=== PATIENT | female | born 1965 | race American Indian/Alaskan Native ===

== ENCOUNTER 2018-10-28 19:31 | Inpatient (IN) | payer MEDICAID ==
--- NOTE | 2018-10-28 20:10 | C.PDOC ---
History Of Present Illness 52 year old female presents to the ED requesting heroin and alcohol detox. Patient admits to last use of heroin this morning. She denies nausea, vomiting, diarrhea, dizziness, shortness of breath, suicidal/homicidal ideation. Time Seen by Provider: 10/28/18 20:10 Chief Complaint (Nursing): Psychiatric Evaluation History Per: Patient History/Exam Limitations: no limitations Onset/Duration Of Symptoms: Hrs Current Symptoms Are (Timing): Still Present Modifying Factor(s): Alcohol, Other (heroin ) Associated Symptoms: denies: Suicidal Thoughts, Suicidal Plan Involuntary Hold By: None Recent travel outside of the [place]: No Additional History Per: Patient Past Medical History Reviewed: Historical Data, Nursing Documentation, Vital Signs Vital Signs: Last Vital Signs Temp 97.9 F 10/28/18 19:42 Pulse 92 H 10/28/18 19:42 Resp 18 10/28/18 19:42 BP 149/91 H 10/28/18 19:42 Pulse Ox 99 10/28/18 19:42 - Medical History PMH: Arthritis, Depression, HTN, Pulmonary Embolism Surgical History: No Surg Hx Family History: States: Unknown Family Hx - Social History Hx Alcohol Use: Yes Hx Substance Use: Yes - Immunization History Hx Tetanus Toxoid Vaccination: No Hx Influenza Vaccination: Yes Hx Pneumococcal Vaccination: No Review Of Systems Constitutional: Negative for: Fever, Chills Gastrointestinal: Negative for: Nausea, Vomiting, Diarrhea Psych: Positive for: Other (heroin and alcohol detox ). Negative for: Suicidal ideation Physical Exam - Physical Exam Appears: Non-toxic, No Acute Distress Skin: Normal Color, Warm, Dry Head: Atraumatic, Normacephalic Eye(s): bilateral: Normal Inspection, PERRL, EOMI Oral Mucosa: Moist Neck: Normal, Normal ROM, Supple, Other (no meningeal signs) Chest: Symmetrical, No Deformity Cardiovascular: Rhythm Regular Respiratory: Normal Breath Sounds Back: Normal Inspection, No CVA Tenderness Extremity: Normal ROM, No Tenderness Extremity: Bilateral: Atraumatic Neurological/Psych: Oriented x3, Normal Speech, Normal Cognition, Normal Cranial Nerves, No Cerebellar Signs, Normal Motor, Normal Sensation Gait: Steady Extremity: Right: No Drift, Left: No Drift, Upper: No Drift, Lower: No Drift ED Course And Treatment - Laboratory Results Result Diagrams: 10/28/18 20:53 10/28/18 20:53 O2 Sat by Pulse Oximetry: 99 (on RA) Pulse Ox Interpretation: Normal Medical Decision Making Medical Decision Makin yr old F presents for detox from Heroin. Pt in NAD, neuro exam unremarkable. Denies any complaints other than desire fro detox. Progress: Bloodwork and urinalysis ordered and reviewed. 1001 labs reviewed medically clear accepted by detox : Dr. Sandra Disposition - Disposition Referrals: Non [facility] Provider, [Primary Care Provider] - Disposition Time: 22:13 Condition: GOOD Forms: [employer] (Israeli) - Clinical Impression Clinical Impression: Desire for detoxification, Heroin abuse - Scribe Statement The provider has reviewed the documentation as recorded by the Scribe (Leslie Brown) Provider Attestation: All medical record entries made by the Scribe were at my direction and personally dictated by me. I have reviewed the chart and agree that the record accurately reflects my personal performance of the history, physical exam, medical decision making, and the department course for this patient. I have also personally directed, reviewed, and agree with the discharge instructions and disposition.
[2018-10-28 20:41] LABS: SQUAMOUS EPITHIAL 4 /hpf (0-5); URINE BACTERIA MANY (<OCC); URINE BILIRUBIN NEGATIVE (NEGATIVE); URINE BLOOD NEGATIVE (NEGATIVE); URINE CLARITY Clear (Clear); URINE COLOR Yellow (YELLOW); URINE GLUCOSE (UA) NORMAL (Normal); URINE LEUKOCYTE ESTERASE NEG Leu/uL (Negative); URINE PROTEIN NEGATIVE (NEGATIVE); URINE UROBILINOGEN NORMAL mg/dL (0.2-1.0)
[2018-10-28 20:52] LABS: BARBITURATES, UR NEGATIVE (NEGATIVE); PHENCYCLIDINE, UR NEGATIVE (NEGATIVE)
[2018-10-28 20:53] LABS: BENZODIAZEPINES, UR POSITIVE (NEGATIVE); OPIATES, UR POSITIVE (NEGATIVE)
[2018-10-28 20:57] LABS: BASO # 0.1 K/uL (0.0-0.2); BASO % 0.8 % (0.0-2.0); EOS # 0.1 K/uL (0.0-0.7); EOS % 1.6 % (0.0-4.0); HEMOGLOBIN 12.5 g/dL (11.0-16.0); LYMPH # 2.1 K/uL (1.0-4.3); MEAN CELL VOLUME 94.2 fL (81.0-99.0); MEAN CORPUSCULAR HEMOGLOBIN 31.9 pg (27.0-31.0); MEAN CORPUSCULAR HGB CONC 33.8 g/dL (33.0-37.0); MEAN PLATELET VOLUME 8.6 fL (7.2-11.7); MONO # 0.6 K/uL (0.0-0.8); MONO % 7.2 % (0.0-10.0); NEUT # 5.1 K/uL (1.8-7.0); NEUT % 64.4 % (50.0-75.0); NRBC % 0.2 % (0.0-2.0); RBC 3.92 Mil/uL (3.80-5.20); RED CELL DISTRIBUTION WIDTH 14.4 % (11.5-14.5)
[2018-10-28 21:12] LABS: ALB/GLOB RATIO 1.2 (1.0-2.1); ALBUMIN 4.4 g/dL (3.5-5.0); ALT/SGPT 37 U/L (9-52); AST/SGOT 96 U/L (14-36); BLOOD UREA NITROGEN 11 mg/dL (7-17); CALCIUM 9.3 mg/dl (8.6-10.4); GFR NON-AFRICAN AMERICAN > 60
[2018-10-28 21:13] LABS: ACETAMINOPHEN < 10.0 ug/mL (10.0-30.0); SALICYLATE < 1.0 mg/dL 1
--- NOTE | 2018-10-29 00:04 | PCM.BM ---
<Rich Lebron - Last Filed: 10/29/18 00:03> Treatment Plan Problems - Problems identified on initial assessmt potential for opiates withdrawal Date Initiated: 10/29/18 Time Initiated: 00:03 Assessment reference: NA Status: Active Treatment assets and liabiliti Patient Assests: adapts well, cooperative, educated, self-reliant, ADL independent, good support system, cognitively intact Patient Liabilities: substance abuse - Milieu Protocol Maintain good personal hygiene: daily Encourage regular showers, daily Remind patient to perform daily oral care, daily Assist patient to perform ADL's Maintain personal safety: every shift Educate patient to report safety concerns to staff, every shift Monitor environment for contraband/sharps Medication safety: Monitor for expected outcome, potential side effects: every shift, Assess barriers to learning: every shift, Assess readiness for medication education: every shift <Sofya Alexander - Last Filed: 11/01/18 14:34> Family Contact Family involvement: Famliy/SO not involved - Goals for Treatment Patient goals for treatment: Complete detox and apply for short-term rehab. Discharge/Continuing Care - Education Needs Education Needs: Patient Medication, Patient Diagnosis/Disease Process, Patient Coping Skills, Patient Anger Management skills, Patient Placement options, Patient Community resources - Discharge Discharge Criteria: No longer exhibiting s/s of withdrawal, Reduction of target symptoms Discharge to:: Substance Abuse Rehab - Treatment Team Participation Discussed with Family/SO: No Was Patient/Family/SO present at Treatment Team Meeting: Yes
[2018-10-29] MEDS: Multiple Vitamins Tab PO SCH (11:03)
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
[2018-10-29] MEDS ORDERED: Enoxaparin 150 mg Syringe SC SCH (13:30)
[2018-10-29] MEDS: NIFEdipine 30 mg ER Tab PO SCH (13:52)
[2018-10-29] MEDS: Enoxaparin 150 mg Syringe SC SCH (18:10)
[2018-10-30] MEDS: Multiple Vitamins Tab PO SCH (10:52)
[2018-10-30] MEDS: NIFEdipine 30 mg ER Tab PO SCH (10:53)
--- NOTE | 2018-10-30 14:44 | CP.PCM.CON ---
<Jane Sinha - Last Filed: 10/30/18 22:00> History of Present Illness - History of Present Illness History of Present Illness: 53 year old female with history of HTN, DVT/PE on Lovenox, alcohol and heroin (sniff) abuse was admitted to detox unit for detox. Medicine team was consulted for patient intractable vomiting. Patient started experiencing vomiting this morning. Patient reports the vomitus have been yellow to dark yellow in color. Patient also complains of epigastric pain that started soon after first episode of vomiting. Her last alcohol and heroin use was on 10/28/18. She cannot quantify how much she had. Patient vomits whenever she takes any by mouth including water. Patient denies fever, chills, shortness of breath, chest pain, or urinary symptoms. PMD: none PMHx: HTN, DVT/PE on Lovenox, gastritis, alcohol and heroin (sniff) abuse PSHx: 1998, endoscopy 2017 Allergy: none Family history: mother-DM, HTN, colon cancer Home med: lovenox Review of Systems - Constitutional Constitutional: As Per HPI, Fatigue. absent: Chills, Fever - EENT Eyes: As Per HPI. absent: Blind Spots, Blurred Vision, Decreased Night Vision, Diplopia Ears: As Per HPI. absent: Decreased Hearing, Disequilibrium, Dizziness Nose/Mouth/Throat: As Per HPI. absent: Epistaxis, Nasal Trauma, Nose Pain, Change in Voice - Cardiovascular Cardiovascular: As Per HPI. absent: Acrocyanosis, Chest Pain, Chest Pain at Rest, Edema, Irregular Heart Rhythm - Respiratory Respiratory: As Per HPI. absent: Dyspnea on Exertion, Wheezing - Gastrointestinal Gastrointestinal: As Per HPI, Abdominal Pain, Diarrhea, Nausea, Vomiting. absent: Melena - Genitourinary Genitourinary: As Per HPI. absent: Hematuria, Pyuria - Musculoskeletal Musculoskeletal: As Per HPI. absent: Joint Swelling, Muscle Weakness - Integumentary Integumentary: As Per HPI. absent: Acne, Erythema - Neurological Neurological: As Per HPI. absent: Abnormal Gait, Abnormal Speech, Convulsions - Psychiatric Psychiatric: As Per HPI. absent: Auditory Hallucinations, Change in Libido, Confusion - Endocrine Endocrine: As Per HPI - Hematologic/Lymphatic Hematologic: As Per HPI Past Patient History - Infectious Disease Hx of Infectious Diseases: None - Past Medical History & Family History Past Medical History?: Yes - Past Social History Smoking Status: Never Smoked - CARDIAC Hx Hypertension: Yes - PULMONARY Hx Pulmonary Embolism: Yes - NEUROLOGICAL HX Cerebrovascular Accident: No (Patient denied) Hx Seizures: No (Patient reported she does not know) - HEMATOLOGICAL/ONCOLOGICAL Hx Cancer: No (Patient denied) Hx Human Immunodeficiency Virus (HIV): No (Patient denied) - MUSCULOSKELETAL/RHEUMATOLOGICAL Hx Arthritis: Yes Hx Falls: Yes - GENITOURINARY/GYNECOLOGICAL Hx Sexually Transmitted Disorders: No (Patient denied) - PSYCHIATRIC Hx Substance Use: Yes - SURGICAL HISTORY Hx Section: Yes Other/Comment: "biopsy" - ANESTHESIA Hx Anesthesia: Yes Hx Anesthesia Reactions: No Hx Malignant Hyperthermia: No Meds Allergies/Adverse Reactions: Allergies Allergy/AdvReac Type Severity Reaction Status Date / Time No Known Allergies Allergy Unverified 10/28/18 19:42 - Medications Medications: Current Medications Chlordiazepoxide (Librium) 25 mg PO TID [facility]; Taper Stop: 11/02/18 11:59 Last Admin: 10/30/18 14:01 Dose: Not Given Chlordiazepoxide (Librium) 25 mg PO Q4H PRN PRN Reason: Alcohol Withdrawal Last Admin: 10/30/18 01:25 Dose: 25 mg Clonidine HCl (Catapres) 0.1 mg PO Q6 PRN PRN Reason: cows=5 or more than Last Admin: 10/30/18 12:50 Dose: 0.1 mg Dicyclomine HCl (Bentyl) 10 mg PO Q6 PRN PRN Reason: Muscle spasm Duloxetine HCl (Cymbalta) 30 mg PO DAILY [facility] Last Admin: 10/30/18 10:52 Dose: Not Given Enoxaparin Sodium (Lovenox) 150 mg SC Q24H [facility] Last Admin: 10/29/18 18:10 Dose: 150 mg Folic Acid (Folic Acid) 1 mg PO DAILY [facility] Last Admin: 10/30/18 10:52 Dose: Not Given Gabapentin (Neurontin) 600 mg PO TID [facility] Last Admin: 10/30/18 14:01 Dose: Not Given Hydroxyzine HCl (Atarax) 50 mg PO Q6 PRN PRN Reason: Anxiety Last Admin: 10/28/18 23:37 Dose: 50 mg Ibuprofen (Motrin Tab) 600 mg PO Q6 PRN PRN Reason: Pain, moderate (4-7) Last Admin: 10/30/18 01:25 Dose: 600 mg Lisinopril (Zestril) 40 mg PO DAILY [facility] Last Admin: 10/30/18 10:54 Dose: Not Given Methadone HCl (Methadone) 15 mg PO Q24H [facility]; Taper Stop: 11/02/18 09:59 Last Admin: 10/30/18 10:53 Dose: Not Given Metoclopramide HCl (Reglan) 5 mg PO 0600,1130,1630,2200 [facility] Metoprolol Tartrate (Lopressor) 25 mg PO BID [facility] Last Admin: 10/30/18 10:53 Dose: Not Given Multivitamins (Hexavitamin) 1 tab PO DAILY [facility] Last Admin: 10/30/18 10:52 Dose: Not Given Nifedipine (Procardia Xl) 30 mg PO DAILY [facility] Last Admin: 10/30/18 10:53 Dose: Not Given Ondansetron HCl (Zofran Tab) 4 mg PO Q6 PRN PRN Reason: Nausea/Vomiting Last Admin: 10/30/18 08:03 Dose: 4 mg Thiamine HCl (Vitamin B1 Tab) 100 mg PO DAILY [facility] Last Admin: 10/30/18 10:53 Dose: Not Given Trazodone HCl (Desyrel) 100 mg PO HS PRN PRN Reason: Insomnia Last Admin: 10/30/18 01:25 Dose: 100 mg Physical Exam - Constitutional Appears: Non-toxic, Unkempt - Head Exam Head Exam: ATRAUMATIC, NORMAL INSPECTION, NORMOCEPHALIC - Eye Exam Eye Exam: EOMI, Normal appearance, PERRL Pupil Exam: NORMAL ACCOMODATION, PERRL - ENT Exam ENT Exam: Mucous Membranes Moist, Normal Exam - Respiratory Exam Respiratory Exam: Clear to Auscultation Bilateral, NORMAL BREATHING PATTERN. absent: Respiratory Distress - Cardiovascular Exam Cardiovascular Exam: REGULAR RHYTHM, +S1, +S2 - GI/Abdominal Exam GI & Abdominal Exam: Normal Bowel Sounds, Soft, Tenderness (epigastric tenderness) Additional comments: Negative Villalobos's, Negative McBurney's - Extremities Exam Extremities exam: Positive for: normal inspection - Back Exam Back exam: NORMAL INSPECTION - Neurological Exam Neurological exam: Alert, Oriented x3 - Psychiatric Exam Psychiatric exam: Normal Affect, Normal Mood - Skin Skin Exam: Dry, Normal Color, Warm Results - Vital Signs Recent Vital Signs: Last Vital Signs Temp 98.7 F 10/30/18 14:26 Pulse 73 10/30/18 14:26 Resp 18 10/30/18 14:26 BP 152/89 H 10/30/18 14:26 Pulse Ox 99 10/30/18 14:26 - Labs Result Diagrams: 10/30/18 17:11 10/30/18 17:11 Assessment & Plan - Assessment and Plan (Free Text) Assessment: Intractable vomiting -Likely secondary polysubstance withdraw -Reglan 5mg po -Zofran 4mg po -Encourage oral hydration -Mucous membrane moist, no signs of dehydration -Follow up labs, replenish as needed Epigastric pain -Hx of gastritis and recent endoscopy -Protonix 40mg -Follow up labs, EKG, Troponin Hx of DVT/PE -Unprovoked DVT 2014 -Unable to control INR with coumadin in the past -Lovenox 150u daily HTN -Exacerbated with vomiting -Lisinopril 40mg -Metoprolol 25mg BID -Procardia 30mg -Clonidine 0.1mg Q6 Polysubstance abuse -Management per psych Discussed with attending Dr. Drummond <Vineet Drummond - Last Filed: 10/31/18 10:31> Meds - Medications Medications: Current Medications Chlordiazepoxide (Librium) 25 mg PO TID [facility]; Taper Stop: 11/02/18 11:59 Last Admin: 10/30/18 17:24 Dose: 25 mg Chlordiazepoxide (Librium) 25 mg PO Q4H PRN PRN Reason: Alcohol Withdrawal Last Admin: 10/31/18 03:42 Dose: 25 mg Clonidine HCl (Catapres) 0.1 mg PO Q6 PRN PRN Reason: cows=5 or more than Last Admin: 10/31/18 03:41 Dose: 0.1 mg Dicyclomine HCl (Bentyl) 10 mg PO Q6 PRN PRN Reason: Muscle spasm Last Admin: 10/30/18 15:56 Dose: 10 mg Duloxetine HCl (Cymbalta) 30 mg PO DAILY [facility] Last Admin: 10/30/18 10:52 Dose: Not Given Enoxaparin Sodium (Lovenox) 150 mg SC Q24H [facility] Last Admin: 10/30/18 16:59 Dose: 150 mg Folic Acid (Folic Acid) 1 mg PO DAILY [facility] Last Admin: 10/30/18 10:52 Dose: Not Given Gabapentin (Neurontin) 600 mg PO TID [facility] Last Admin: 10/30/18 17:25 Dose: 600 mg Hydroxyzine HCl (Atarax) 50 mg PO Q6 PRN PRN Reason: Anxiety Last Admin: 10/31/18 03:41 Dose: 50 mg Ibuprofen (Motrin Tab) 600 mg PO Q6 PRN PRN Reason: Pain, moderate (4-7) Last Admin: 10/31/18 03:42 Dose: 600 mg Lisinopril (Zestril) 40 mg PO DAILY [facility] Last Admin: 10/30/18 10:54 Dose: Not Given Magnesium Hydroxide (Milk Of Magnesia) 30 ml PO BID PRN PRN Reason: Constipation Last Admin: 10/30/18 18:16 Dose: 30 ml Magnesium Oxide (Mag-Ox) 400 mg PO BID [facility] Stop: 10/31/18 18:01 Methadone HCl (Methadone) 10 mg PO Q24H [facility]; Taper Stop: 11/02/18 09:59 Last Admin: 10/30/18 10:53 Dose: Not Given Metoclopramide HCl (Reglan) 5 mg PO 0600,1130,1630,2200 [facility] Last Admin: 10/31/18 06:47 Dose: Not Given Metoprolol Tartrate (Lopressor) 25 mg PO BID [facility] Last Admin: 10/30/18 18:16 Dose: 25 mg Multivitamins (Hexavitamin) 1 tab PO DAILY [facility] Last Admin: 10/30/18 10:52 Dose: Not Given Nifedipine (Procardia Xl) 30 mg PO DAILY [facility] Last Admin: 10/30/18 10:53 Dose: Not Given Ondansetron HCl (Zofran Tab) 4 mg PO Q6 PRN PRN Reason: Nausea/Vomiting Last Admin: 10/30/18 08:03 Dose: 4 mg Pantoprazole Sodium (Protonix Ec Tab) 40 mg PO DAILY [facility] Potassium Chloride (K-Dur 20 Meq Er Tab) 40 meq PO BID [facility] Stop: 10/31/18 18:01 Thiamine HCl (Vitamin B1 Tab) 100 mg PO DAILY [facility] Last Admin: 10/30/18 10:53 Dose: Not Given Trazodone HCl (Desyrel) 100 mg PO HS PRN PRN Reason: Insomnia Last Admin: 10/30/18 21:16 Dose: 100 mg Results - Vital Signs Recent Vital Signs: Last Vital Signs Temp 98.2 F 10/31/18 09:00 Pulse 70 10/31/18 09:00 Resp 20 10/31/18 09:00 BP 138/92 H 10/31/18 09:00 Pulse Ox 97 10/31/18 09:00 - Labs Result Diagrams: 10/30/18 17:11 10/31/18 07:46 Labs: Laboratory Results - last 24 hr 10/30/18 10/30/18 10/31/18 17:11 17:11 07:46 WBC 9.2 RBC 4.07 Hgb 13.5 Hct 39.1 MCV 96.0 MCH 33.1 H MCHC 34.5 RDW 14.1 Plt Count 286 MPV 9.5 Neut % (Auto) 85.7 H Lymph % (Auto) 10.2 L [place] % (Auto) 3.0 Eos % (Auto) 0.0 Baso % (Auto) 1.1 Neut # (Auto) 7.9 H Lymph # (Auto) 0.9 L [place] # (Auto) 0.3 Eos # (Auto) 0.0 Baso # (Auto) 0.1 Sodium 137 137 Potassium 3.5 L 2.9 L Chloride 100 99 Carbon Dioxide 26 28 Anion Gap 15 14 BUN 12 14 Creatinine 0.5 L 0.7 Est GFR ( Amer) > 60 > 60 Est GFR (Non-Af Amer) > 60 > 60 Random Glucose 126 H 142 H Calcium 9.4 8.7 Phosphorus 3.7 3.3 Magnesium 1.3 L 1.5 L Total Bilirubin 0.7 0.5 AST 42 H D 49 H ALT 29 27 Alkaline Phosphatase 101 86 Total Creatine Kinase 57 CK-MB (Mass) 0.49 Troponin I < 0.0120 Total Protein 8.2 7.0 Albumin 4.2 3.4 L Globulin 4.1 H 3.6 Albumin/Globulin Ratio 1.0 0.9 L Lipase 431 H Attending/Attestation - Attestation I have personally seen and examined this patient.: Yes I have fully participated in the care of the patient.: Yes I have reviewed all pertinent clinical information: Yes Notes (Text): Seen and examined with the resident Patient was complaining of vomiting.As per RN was able to take meds with fernando xuan Assessment and the plan discussed with the resident. we will follow labs and encourage oral fluids. If not improving or bun/cr high we will admit to medical floor for IV hydration
[2018-10-30] MEDS: Enoxaparin 150 mg Syringe SC SCH (16:59)
[2018-10-30] MEDS ORDERED: Magnesium Hydroxide Susp 30 ml UD PO PRN (17:28)
[2018-10-30 17:31] LABS: LYMPH # 0.9 K/uL (1.0-4.3); MONO # 0.3 K/uL (0.0-0.8); RBC 4.07 Mil/uL (3.80-5.20); RED CELL DISTRIBUTION WIDTH 14.1 % (11.5-14.5)
[2018-10-30 17:35] LABS: BASO # 0.1 K/uL (0.0-0.2); BASO % 1.1 % (0.0-2.0); HEMOGLOBIN 13.5 g/dL (11.0-16.0); LYMPH % 10.2 % (20.0-40.0); MEAN CORPUSCULAR HEMOGLOBIN 33.1 pg (27.0-31.0); MEAN CORPUSCULAR HGB CONC 34.5 g/dL (33.0-37.0); MEAN PLATELET VOLUME 9.5 fL (7.2-11.7); NEUT # 7.9 K/uL (1.8-7.0); NEUT % 85.7 % (50.0-75.0); NRBC % 0.2 % (0.0-2.0); WHITE BLOOD COUNT 9.2 K/uL (4.8-10.8)
[2018-10-30 17:50] LABS: ALBUMIN 4.2 g/dL (3.5-5.0); ALT/SGPT 29 U/L (9-52); AST/SGOT 42 U/L (14-36); BLOOD UREA NITROGEN 12 mg/dL (7-17); CALCIUM 9.4 mg/dl (8.6-10.4); GFR NON-AFRICAN AMERICAN > 60; LIPASE 431 U/L (23-300)
[2018-10-30 17:55] LABS: CK-MB 0.49 ng/mL (0.0-3.38)
--- NOTE | 2018-10-30 20:45 | PCM.PYCHPN ---
Psychiatric Progress Note - Psychiatric Progress Note Patient seen today, length of contact: 15 minutes Patient Chief Complaint: I am not feeling better. I have abdominal pain and nausea. Problems Identified/Issues Discussed: Patient seen, chart reviewed, case discussed with the staff. Issues related to illness and treatment were discussed with the patient and staff. Reported compliant with treatment with no adverse effect. Tolerating treatment very well. Reported not feeling better. Patient reported vomiting and abdominal pain. Patient was given Zofran sublingual and later IM but still patient was not feeling better. Medical consult was called to evaluate the patient. Calm and cooperative. Awake, alert and oriented x3. Mood reported as anxious. Affect appropriate. Speech soft with good eye contact. Memory intact. Aftercare discussed with the patient. Denied any delusions, auditory or visual hallucinations, no suicidal ideations or homicidal ideation at the time of evaluation. Medical Problems: Hypertension Obesity Arthritis History of DVT and pulmonary embolism, on Lovenox. Diagnostic Results: Reviewed Medication Change: No Medical Record Reviewed: Yes Consults ordered or reviewed: Medical consult was ordered. Mental Status Examination - Cognitive Function Orientation: Person, Place, Situation, Time Memory: Intact Attention: WNL Concentration: WNL Association: [facility] Fund of Knowledge: [facility] Decription of patient's judgement and insights: Fair - Mood Mood: Anxious - Affect Affect: Other (Appropriate) - Speech Speech: Appropriate - Formal Thought Process Formal Thought Process: No Impairment Psychotic Thoughts and Behaviors: None - Suicidal Ideation Suicidal Ideation: No - Homicidal Ideation Homicidal Ideation: No Goal/Treatment Plan - Goal/Treatment Plan Need for Continued Stay: Remain at risks for inpatient hospitalization, Discharge may exacerbated symptoms, Severe functional impairment Progress Toward Problem(s) and Goals/Treatment Plan: Patient education. Supportive therapy. CBT for relapse prevention. ME for abstinence. Continue treatment as before. Estimated Date of D/C: 11/02/18 - Smoking Cessation Smoking Cessation Initiated: No
--- NOTE | 2018-10-31 08:08 | CP.PCM.PN ---
<Briana Ross - Last Filed: 10/31/18 14:42> Subjective - Date & Time of Evaluation Date of Evaluation: 10/31/18 Time of Evaluation: 07:58 - Subjective Subjective: PGY-1 Briana Ross D.O. Medicine progress note for Dr. Bennett's service: Patient was seen and examined this morning. She states that she is feeling better. She has not vomited since 2:30 PM yesterday. She had some diarrhea last night but none since this morning. She is tolerating PO liquids and fruit. Denies abdominal pain. Patient overall feels weak and is using a wheelchair. She ambulates with a cane at baseline. Denies tremors and hallucinations. Objective - Vital Signs/Intake and Output Vital Signs (last 24 hours): Temp Pulse Resp BP Pulse Ox 98.2 F 72 16 133/87 98 10/31/18 06:40 10/31/18 06:40 10/31/18 06:40 10/31/18 06:40 10/31/18 06:40 - Medications Medications: Current Medications Chlordiazepoxide (Librium) 25 mg PO TID [facility]; Taper Stop: 11/02/18 11:59 Last Admin: 10/30/18 17:24 Dose: 25 mg Chlordiazepoxide (Librium) 25 mg PO Q4H PRN PRN Reason: Alcohol Withdrawal Last Admin: 10/31/18 03:42 Dose: 25 mg Clonidine HCl (Catapres) 0.1 mg PO Q6 PRN PRN Reason: cows=5 or more than Last Admin: 10/31/18 03:41 Dose: 0.1 mg Dicyclomine HCl (Bentyl) 10 mg PO Q6 PRN PRN Reason: Muscle spasm Last Admin: 10/30/18 15:56 Dose: 10 mg Duloxetine HCl (Cymbalta) 30 mg PO DAILY [facility] Last Admin: 10/30/18 10:52 Dose: Not Given Enoxaparin Sodium (Lovenox) 150 mg SC Q24H [facility] Last Admin: 10/30/18 16:59 Dose: 150 mg Folic Acid (Folic Acid) 1 mg PO DAILY [facility] Last Admin: 10/30/18 10:52 Dose: Not Given Gabapentin (Neurontin) 600 mg PO TID [facility] Last Admin: 10/30/18 17:25 Dose: 600 mg Hydroxyzine HCl (Atarax) 50 mg PO Q6 PRN PRN Reason: Anxiety Last Admin: 10/31/18 03:41 Dose: 50 mg Ibuprofen (Motrin Tab) 600 mg PO Q6 PRN PRN Reason: Pain, moderate (4-7) Last Admin: 10/31/18 03:42 Dose: 600 mg Lisinopril (Zestril) 40 mg PO DAILY [facility] Last Admin: 10/30/18 10:54 Dose: Not Given Magnesium Hydroxide (Milk Of Magnesia) 30 ml PO BID PRN PRN Reason: Constipation Last Admin: 10/30/18 18:16 Dose: 30 ml Methadone HCl (Methadone) 15 mg PO Q24H [facility]; Taper Stop: 11/02/18 09:59 Last Admin: 10/30/18 10:53 Dose: Not Given Metoclopramide HCl (Reglan) 5 mg PO 0600,1130,1630,2200 [facility] Last Admin: 10/31/18 06:47 Dose: Not Given Metoprolol Tartrate (Lopressor) 25 mg PO BID [facility] Last Admin: 10/30/18 18:16 Dose: 25 mg Multivitamins (Hexavitamin) 1 tab PO DAILY [facility] Last Admin: 10/30/18 10:52 Dose: Not Given Nifedipine (Procardia Xl) 30 mg PO DAILY [facility] Last Admin: 10/30/18 10:53 Dose: Not Given Ondansetron HCl (Zofran Tab) 4 mg PO Q6 PRN PRN Reason: Nausea/Vomiting Last Admin: 10/30/18 08:03 Dose: 4 mg Pantoprazole Sodium (Protonix Ec Tab) 40 mg PO DAILY [facility] Thiamine HCl (Vitamin B1 Tab) 100 mg PO DAILY [facility] Last Admin: 10/30/18 10:53 Dose: Not Given Trazodone HCl (Desyrel) 100 mg PO HS PRN PRN Reason: Insomnia Last Admin: 10/30/18 21:16 Dose: 100 mg - Labs Labs: 10/30/18 17:11 10/30/18 17:11 - Constitutional Appears: No Acute Distress, Unkempt - Head Exam Head Exam: ATRAUMATIC, NORMAL INSPECTION, NORMOCEPHALIC - Eye Exam Eye Exam: EOMI, Normal appearance, PERRL - ENT Exam ENT Exam: Mucous Membranes Moist - Neck Exam Neck Exam: Normal Inspection - Respiratory Exam Respiratory Exam: Clear to Ausculation Bilateral, NORMAL BREATHING PATTERN - Cardiovascular Exam Cardiovascular Exam: REGULAR RHYTHM, +S1, +S2 - GI/Abdominal Exam GI & Abdominal Exam: Soft. absent: Tenderness Additional comments: obese - Rectal Exam Rectal Exam: Deferred - Extremities Exam Extremities Exam: Normal Inspection. absent: Pedal Edema - Neurological Exam Neurological Exam: Alert, Awake, CN II-XII Intact, Oriented x3. absent: Normal Gait (wheelchair due to generalized weakness) Neuro motor strength exam: Left Upper Extremity: 5, Right Upper Extremity: 5, Left Lower Extremity: 5, Right Lower Extremity: 5 - Psychiatric Exam Psychiatric exam: Normal Affect, Normal Mood - Skin Skin Exam: Dry, Intact, Normal Color, Warm Assessment and Plan - Assessment and Plan (Free Text) Assessment: Patient is a 53 yo AA female admitted to the detox unit for heroin and alcohol. Hospitalists were consulted for intractable vomiting- suspect due to withdrawal. She is utilizing a wheelchair for generalized weakness- will have PT work with her. Patient also has history of DVT/PE and is on therapeutic Lovenox. Plan: Intractable vomiting with epigastric pain, improving- suspect substance wi thdrawal - BRIDGET negative - Lipase 431 - Bentyl 10 mg PO Q6H PRN - Reglan 5 mg PO QID - Zofran 4 mg PO Q6H PRN - Protonix 40 mg PO daily - Replete electrolytes PRN - Potassium - Magnesium - BMP, Mg, Ph in AM Hypertension - Monitor vitals Q8H - Lisinopril 40 mg PO daily - Metoprolol 25 mg PO BID - Nifedipine 30 mg PO daily - Clonidine 0.1 mg PO Q6H PRN H/o DVT- unprovoked 2014, failed Coumadin as outpatient - Lovenox 150 units daily Polysubstance use and depression- alcohol, heroin - Management as per psychiatry - BAL 198 - UDS positive for opiates, benzos - Librium taper - Methadone taper - Motrin 600 mg PO Q6H PRN - Atarax 50 mg PO Q6H PRN - Clonidine 0.1 mg PO Q6H PRN - Gabapentin 600 mg PO TID - Cymbalta 30 mg PO daily - Trazodone 100 mg PO QHS - Folic acid, thiamine, MV Case was discussed with attending, Dr. Bennett. <Cm Bennett - Last Filed: 10/31/18 15:52> Objective - Vital Signs/Intake and Output Vital Signs (last 24 hours): Temp Pulse Resp BP Pulse Ox 98.0 F 60 18 91/60 L 100 10/31/18 13:00 10/31/18 13:00 10/31/18 13:00 10/31/18 13:00 10/31/18 13:00 - Medications Medications: Current Medications Chlordiazepoxide (Librium) 25 mg PO BID [facility]; Taper Stop: 11/02/18 11:59 Last Admin: 10/31/18 10:52 Dose: 25 mg Chlordiazepoxide (Librium) 25 mg PO Q4H PRN PRN Reason: Alcohol Withdrawal Last Admin: 10/31/18 03:42 Dose: 25 mg Clonidine HCl (Catapres) 0.1 mg PO Q6 PRN PRN Reason: cows=5 or more than Last Admin: 10/31/18 03:41 Dose: 0.1 mg Dicyclomine HCl (Bentyl) 10 mg PO Q6 PRN PRN Reason: Muscle spasm Last Admin: 10/30/18 15:56 Dose: 10 mg Duloxetine HCl (Cymbalta) 30 mg PO DAILY [facility] Last Admin: 10/31/18 10:52 Dose: 30 mg Enoxaparin Sodium (Lovenox) 150 mg SC Q24H [facility] Last Admin: 10/30/18 16:59 Dose: 150 mg Folic Acid (Folic Acid) 1 mg PO DAILY [facility] Last Admin: 10/31/18 10:47 Dose: 1 mg Gabapentin (Neurontin) 600 mg PO TID [facility] Last Admin: 10/31/18 13:21 Dose: 600 mg Hydroxyzine HCl (Atarax) 50 mg PO Q6 PRN PRN Reason: Anxiety Last Admin: 10/31/18 03:41 Dose: 50 mg Ibuprofen (Motrin Tab) 600 mg PO Q6 PRN PRN Reason: Pain, moderate (4-7) Last Admin: 10/31/18 03:42 Dose: 600 mg Lisinopril (Zestril) 40 mg PO DAILY [facility] Last Admin: 10/31/18 10:51 Dose: 40 mg Magnesium Hydroxide (Milk Of Magnesia) 30 ml PO BID PRN PRN Reason: Constipation Last Admin: 10/30/18 18:16 Dose: 30 ml Magnesium Oxide (Mag-Ox) 400 mg PO BID [facility] Stop: 10/31/18 18:01 Last Admin: 10/31/18 11:32 Dose: 400 mg Methadone HCl (Methadone) 10 mg PO Q24H [facility]; Taper Stop: 11/02/18 09:59 Last Admin: 10/31/18 10:54 Dose: 10 mg Metoclopramide HCl (Reglan) 5 mg PO 0600,1130,1630,2200 [facility] Last Admin: 10/31/18 10:58 Dose: 5 mg Metoprolol Tartrate (Lopressor) 25 mg PO BID [facility] Last Admin: 10/31/18 10:46 Dose: 25 mg Multivitamins (Hexavitamin) 1 tab PO DAILY [facility] Last Admin: 10/31/18 10:47 Dose: 1 tab Nifedipine (Procardia Xl) 30 mg PO DAILY [facility] Last Admin: 10/31/18 10:51 Dose: 30 mg Ondansetron HCl (Zofran Tab) 4 mg PO Q6 PRN PRN Reason: Nausea/Vomiting Last Admin: 10/30/18 08:03 Dose: 4 mg Pantoprazole Sodium (Protonix Ec Tab) 40 mg PO DAILY [facility] Last Admin: 10/31/18 10:53 Dose: 40 mg Potassium Chloride (K-Dur 20 Meq Er Tab) 40 meq PO BID [facility] Stop: 10/31/18 18:01 Last Admin: 10/31/18 10:48 Dose: 40 meq Thiamine HCl (Vitamin B1 Tab) 100 mg PO DAILY [facility] Last Admin: 10/31/18 10:47 Dose: 100 mg Trazodone HCl (Desyrel) 100 mg PO HS PRN PRN Reason: Insomnia Last Admin: 10/30/18 21:16 Dose: 100 mg - Labs Labs: 10/30/18 17:11 10/31/18 07:46 Attending/Attestation - Attestation I have personally seen and examined this patient.: Yes I have fully participated in the care of the patient.: Yes I have reviewed all pertinent clinical information, including history, physical exam and plan: Yes Notes (Text): 10/31/18 15:51 Medical attending: Patient was seen and examined by me. Agree with the above note by the resident The patient was not in any acute distress. The patient is now tolerating PO diet. She says she has to eat slowly. She was not having active diarrhea - she did say she was having tenderness abdominal area. Cat this is related to withdrawl symptms. We will continue to replace her K and leann will check again lab work Cm Bennett
[2018-10-31 08:20] LABS: ALB/GLOB RATIO 0.9 (1.0-2.1); ALBUMIN 3.4 g/dL (3.5-5.0); ALT/SGPT 27 U/L (9-52); AST/SGOT 49 U/L (14-36); BLOOD UREA NITROGEN 14 mg/dL (7-17); CALCIUM 8.7 mg/dl (8.6-10.4); GFR NON-AFRICAN AMERICAN > 60
[2018-10-31] MEDS: Multiple Vitamins Tab PO SCH (10:47)
[2018-10-31] MEDS: Potassium Chloride 20 mEq ER Tab PO SCH ×2 (10:48→17:08)
[2018-10-31] MEDS: NIFEdipine 30 mg ER Tab PO SCH (10:51)
[2018-10-31] MEDS: Pantoprazole 40 mg EC Tab PO SCH (10:53)
--- NOTE | 2018-10-31 11:26 | PCM.PYCHPN ---
Psychiatric Progress Note - Psychiatric Progress Note Patient seen today, length of contact: 15 minutes Medication Change: Yes Medical Record Reviewed: Yes Mental Status Examination - Cognitive Function Orientation: Person, Place, Situation, Time Memory: Intact Attention: WNL Concentration: WNL Association: [facility] Fund of Knowledge: WNL - Mood Mood: Anxious - Affect Affect: Other (Appropriate) - Speech Speech: Appropriate - Formal Thought Process Formal Thought Process: No Impairment - Suicidal Ideation Suicidal Ideation: No - Homicidal Ideation Homicidal Ideation: No Goal/Treatment Plan - Goal/Treatment Plan Need for Continued Stay: Remain at risks for inpatient hospitalization, Discharge may exacerbated symptoms, Severe functional impairment Estimated Date of D/C: 11/02/18
[2018-10-31] MEDS: Magnesium Oxide 400 mg Tab UD PO SCH ×2 (11:32→17:08)
[2018-10-31] MEDS ORDERED: Potassium Chloride 20 mEq ER Tab PO STA (14:14)
[2018-10-31] MEDS: Enoxaparin 150 mg Syringe SC SCH (17:09)
--- NOTE | 2018-10-31 18:08 | CARD ---
APPROVED REPORT Date of service: 10/30/2018 EKG Measurement Heart [id number] <Conclusion> Sinus rhythm with 1st degree AV block Minimal voltage criteria for LVH, may be normal variant Anterolateral infarct, age undetermined Technically poor Abnormal ECG
[2018-11-01 08:22] LABS: CALCIUM 8.9 mg/dl (8.6-10.4)
--- NOTE | 2018-11-01 09:41 | CP.PCM.PN ---
<Briana Ross - Last Filed: 11/01/18 11:46> Subjective - Date & Time of Evaluation Date of Evaluation: 11/01/18 Time of Evaluation: 09:39 - Subjective Subjective: PGY-1 Briana Ross D.O. Medicine progress note for Dr. Bennett's service: Patient was seen and examined this morning. She is still in a wheelchair. She states that her vomiting and diarrhea have both resolved. She has been able to tolerate PO liquids and solid, but she is not eating much. She feels thirsty. She would like to go to a long-term rehab. Objective - Vital Signs/Intake and Output Vital Signs (last 24 hours): Temp Pulse Resp BP Pulse Ox 98.2 F 68 18 90/60 L 96 11/01/18 06:30 11/01/18 06:30 11/01/18 06:30 11/01/18 06:30 11/01/18 06:30 - Medications Medications: Current Medications Chlordiazepoxide (Librium) 25 mg PO BID [facility]; Taper Stop: 11/02/18 11:59 Last Admin: 10/31/18 17:08 Dose: 25 mg Chlordiazepoxide (Librium) 25 mg PO Q4H PRN PRN Reason: Alcohol Withdrawal Last Admin: 10/31/18 21:06 Dose: 25 mg Clonidine HCl (Catapres) 0.1 mg PO Q6 PRN PRN Reason: cows=5 or more than Last Admin: 10/31/18 21:06 Dose: 0.1 mg Dicyclomine HCl (Bentyl) 10 mg PO Q6 PRN PRN Reason: Muscle spasm Last Admin: 10/31/18 21:06 Dose: 10 mg Enoxaparin Sodium (Lovenox) 150 mg SC Q24H [facility] Last Admin: 10/31/18 17:09 Dose: 150 mg Folic Acid (Folic Acid) 1 mg PO DAILY [facility] Last Admin: 10/31/18 10:47 Dose: 1 mg Gabapentin (Neurontin) 600 mg PO TID [facility] Last Admin: 10/31/18 17:09 Dose: 600 mg Hydroxyzine HCl (Atarax) 50 mg PO Q6 PRN PRN Reason: Anxiety Last Admin: 10/31/18 21:06 Dose: 50 mg Ibuprofen (Motrin Tab) 600 mg PO Q6 PRN PRN Reason: Pain, moderate (4-7) Last Admin: 10/31/18 03:42 Dose: 600 mg Lisinopril (Zestril) 40 mg PO DAILY [facility] Magnesium Hydroxide (Milk Of Magnesia) 30 ml PO BID PRN PRN Reason: Constipation Last Admin: 10/30/18 18:16 Dose: 30 ml Methadone HCl (Methadone) 10 mg PO Q24H [facility]; Taper Stop: 11/02/18 09:59 Last Admin: 10/31/18 10:54 Dose: 10 mg Metoclopramide HCl (Reglan) 5 mg PO 0600,1130,1630,2200 [facility] Last Admin: 11/01/18 06:09 Dose: 5 mg Metoprolol Tartrate (Lopressor) 25 mg PO BID [facility] Multivitamins (Hexavitamin) 1 tab PO DAILY [facility] Last Admin: 10/31/18 10:47 Dose: 1 tab Nifedipine (Procardia Xl) 30 mg PO DAILY [facility] Ondansetron HCl (Zofran Tab) 4 mg PO Q6 PRN PRN Reason: Nausea/Vomiting Last Admin: 10/30/18 08:03 Dose: 4 mg Pantoprazole Sodium (Protonix Ec Tab) 40 mg PO DAILY [facility] Last Admin: 10/31/18 10:53 Dose: 40 mg Thiamine HCl (Vitamin B1 Tab) 100 mg PO DAILY [facility] Last Admin: 10/31/18 10:47 Dose: 100 mg Trazodone HCl (Desyrel) 100 mg PO HS PRN PRN Reason: Insomnia Last Admin: 10/31/18 21:06 Dose: 100 mg - Labs Labs: 10/30/18 17:11 11/01/18 07:34 - Constitutional Appears: Non-toxic, No Acute Distress - Head Exam Head Exam: ATRAUMATIC, NORMAL INSPECTION - Eye Exam Eye Exam: EOMI, Normal appearance, PERRL - ENT Exam ENT Exam: Mucous Membranes Dry - Neck Exam Neck Exam: Normal Inspection - Respiratory Exam Respiratory Exam: Clear to Ausculation Bilateral, NORMAL BREATHING PATTERN - Cardiovascular Exam Cardiovascular Exam: REGULAR RHYTHM, +S1, +S2 - GI/Abdominal Exam GI & Abdominal Exam: Soft. absent: Tenderness - Rectal Exam Rectal Exam: Deferred - Extremities Exam Extremities Exam: Normal Inspection. absent: Pedal Edema, Tenderness - Neurological Exam Neurological Exam: Alert, Awake, CN II-XII Intact, Oriented x3 Neuro motor strength exam: Left Upper Extremity: 5, Right Upper Extremity: 5, Left Lower Extremity: 5, Right Lower Extremity: 5 - Psychiatric Exam Psychiatric exam: Depressed - Skin Skin Exam: Dry, Intact, Normal Color, Warm Assessment and Plan - Assessment and Plan (Free Text) Assessment: Patient is a 53 yo AA female admitted to the detox unit for heroin and alcohol. Hospitalists were consulted for intractable vomiting and diarrhea- suspect due to withdrawal. Both has resolved. She is utilizing a wheelchair for generalized weakness; PT is working with her. Patient also has history of DVT/PE and is on therapeutic Lovenox. New DOROTHY- patient not eating/drinking much. Plan: Acute kidney injury- suspect dehydration - BUN/Cr 26/1.7 - Encourage oral hydration - Hold lisinopril - Decrease Lovenox to 90 mg SC daily - F/u BMP in AM Generalized weakness, improving- 2/2 poor oral intake, withdrawal - Encourage nutritional PO intake - PT- rec home with services Intractable vomiting with epigastric pain, resolved- suspect substance withdrawal - BRIDGET negative - Lipase 431 - Bentyl 10 mg PO Q6H PRN - Reglan 5 mg PO QID - Zofran 4 mg PO Q6H PRN - Protonix 40 mg PO daily - Replete electrolytes PRN - Potassium- resolved - Magnesium- resolved Hypertension - Monitor vitals Q8H - Lisinopril 40 mg PO daily- hold for DOROTHY - Metoprolol 25 mg PO BID - Nifedipine 30 mg PO daily - Clonidine 0.1 mg PO Q6H PRN H/o DVT- unprovoked 2014, failed Coumadin as outpatient - Decrease Lovenox to 90 mg SC daily Polysubstance use and depression- alcohol, heroin - Management as per psychiatry - BAL 198 - UDS positive for opiates, benzos - Librium taper - Methadone taper - Motrin 600 mg PO Q6H PRN - Atarax 50 mg PO Q6H PRN - Clonidine 0.1 mg PO Q6H PRN - Gabapentin 600 mg PO TID - Cymbalta 30 mg PO daily - Trazodone 100 mg PO QHS - Folic acid, thiamine, MV Case was discussed with attending, Dr. Bennett. <Cm Bennett - Last Filed: 11/01/18 15:05> Objective - Vital Signs/Intake and Output Vital Signs (last 24 hours): Temp Pulse Resp BP Pulse Ox 98.6 F 65 18 97/67 L 97 11/01/18 14:33 11/01/18 14:33 11/01/18 14:33 11/01/18 14:33 11/01/18 14:33 - Medications Medications: Current Medications Chlordiazepoxide (Librium) 25 mg PO DAILY [facility]; Taper Stop: 11/02/18 11:59 Last Admin: 11/01/18 10:59 Dose: Not Given Chlordiazepoxide (Librium) 25 mg PO Q4H PRN PRN Reason: Alcohol Withdrawal Last Admin: 10/31/18 21:06 Dose: 25 mg Clonidine HCl (Catapres) 0.1 mg PO Q6 PRN PRN Reason: cows=5 or more than Last Admin: 10/31/18 21:06 Dose: 0.1 mg Dicyclomine HCl (Bentyl) 10 mg PO Q6 PRN PRN Reason: Muscle spasm Last Admin: 10/31/18 21:06 Dose: 10 mg Enoxaparin Sodium (Lovenox) 90 mg SC Q24H [facility] Last Admin: 11/01/18 11:29 Dose: 90 mg Folic Acid (Folic Acid) 1 mg PO DAILY [facility] Last Admin: 11/01/18 10:58 Dose: 1 mg Gabapentin (Neurontin) 600 mg PO TID [facility] Last Admin: 11/01/18 14:14 Dose: 600 mg Hydroxyzine HCl (Atarax) 50 mg PO Q6 PRN PRN Reason: Anxiety Last Admin: 10/31/18 21:06 Dose: 50 mg Ibuprofen (Motrin Tab) 600 mg PO Q6 PRN PRN Reason: Pain, moderate (4-7) Last Admin: 10/31/18 03:42 Dose: 600 mg Lisinopril (Zestril) 40 mg PO DAILY [facility] Last Admin: 11/01/18 11:00 Dose: Not Given Magnesium Hydroxide (Milk Of Magnesia) 30 ml PO BID PRN PRN Reason: Constipation Last Admin: 10/30/18 18:16 Dose: 30 ml Methadone HCl (Methadone) 5 mg PO Q24H [facility]; Taper Stop: 11/02/18 09:59 Last Admin: 11/01/18 10:59 Dose: 5 mg Metoclopramide HCl (Reglan) 5 mg PO 0600,1130,1630,2200 [facility] Last Admin: 11/01/18 10:57 Dose: 5 mg Metoprolol Tartrate (Lopressor) 25 mg PO BID [facility] Last Admin: 11/01/18 10:59 Dose: 25 mg Multivitamins (Hexavitamin) 1 tab PO DAILY [facility] Last Admin: 11/01/18 10:59 Dose: 1 tab Nifedipine (Procardia Xl) 30 mg PO DAILY [facility] Last Admin: 11/01/18 10:58 Dose: 30 mg Ondansetron HCl (Zofran Tab) 4 mg PO Q6 PRN PRN Reason: Nausea/Vomiting Last Admin: 10/30/18 08:03 Dose: 4 mg Pantoprazole Sodium (Protonix Ec Tab) 40 mg PO DAILY [facility] Last Admin: 11/01/18 10:58 Dose: 40 mg Thiamine HCl (Vitamin B1 Tab) 100 mg PO DAILY [facility] Last Admin: 11/01/18 10:58 Dose: 100 mg Trazodone HCl (Desyrel) 100 mg PO HS PRN PRN Reason: Insomnia Last Admin: 10/31/18 21:06 Dose: 100 mg - Labs Labs: 10/30/18 17:11 11/01/18 07:34 Attending/Attestation - Attestation I have personally seen and examined this patient.: Yes I have fully participated in the care of the patient.: Yes I have reviewed all pertinent clinical information, including history, physical exam and plan: Yes Notes (Text): 11/01/18 15:03 Medical attending: Patient was seen and examined by me, the patient was seen with the curator medical museum and I reviewed the above note by the resident. The patient reports that she is eating a whole lot better now, she's also taking liquids better. She has much less abdominal pain. No nausea no vomiting we saw her this afternoo n The patient's creatinine was a little bit elevated. We explained to her that we held the dose of lisinopril today and we decreased the dose of the Lovenox that she is getting just temporarily. If the patient leaves tomorrow we explained to her that she could resume the lisinopril and Lovenox as before so long as her appetite is much better and that she's properly eating and drinking Peter Bennett
[2018-11-01] MEDS: NIFEdipine 30 mg ER Tab PO SCH (10:58)
[2018-11-01] MEDS: Pantoprazole 40 mg EC Tab PO SCH (10:58)
[2018-11-01] MEDS: Multiple Vitamins Tab PO SCH (10:59)
[2018-11-01] MEDS: Enoxaparin 100 mg Syringe SC SCH (11:29)
[2018-11-02 06:25] VITALS: O2SAT 97
[2018-11-02] MEDS: Pantoprazole 40 mg EC Tab PO SCH (09:27)
[2018-11-02] MEDS: Multiple Vitamins Tab PO SCH (09:27)
[2018-11-02] MEDS: NIFEdipine 30 mg ER Tab PO SCH (09:28)
[2018-11-02 09:29] VITALS: BP 122/74
[2018-11-02] MEDS: Enoxaparin 100 mg Syringe SC SCH (09:32)
--- NOTE | 2018-11-02 10:00 | PCM.PYCHDC ---
Mental Status Examination - Mental Status Examination Orientation: Person, Place, Situation, Time Memory: Intact Mood: Anxious Affect: Constricted Speech: Appropriate Attention: WNL Concentration: WNL Association: WNL Fund of Knowledge: WNL Formal Thought Process: No Impairment Suicidal Ideation: No Current Homicidal Ideation?: No Discharge Summary - Discharge Note Consultations:: List each consultation separately and include: 1. Reason for request. 2. Findings. 3. Follow-up Summary of Hospital Course include:: 1. Description of specific treatment plan utilized for patients during their course of treatmen. 2. Summarize the time- course for resolution of acute symptoms and/or regressed behaviors. 3. Describe issues identified and worked on during hospitalization. 4. Describe medication utilized. 5. Describe medical problems identified and treated. 6. Reassessment of suicide risk Summary of Hospital Course: Hospital course: The pt was admitted and started on treatment with psychotherapy, support, psychoeducation and medications. CT and CBT used. The pt attended groups and activities, as well as milieu therapy. All the risks and benefits of medications are discussed and the patient understood and agreed. The pt improved with the treatments provided. After care discussed with the patient. Wait listed in [facility]. She will go to [facility] in [place]. - Final Diagnosis (DSM 5) Condition upon Discharge: GOOD DSM 5: Alcohol withdrawal Alcohol use disorder severe Opioid withdrawal Opioid use disorder severe Major depressive disorder recurrent severe without psychotic features Disposition: HOME/ ROUTINE Follow-up Treatment Plan: Continue below medications after discharge. Follow after care plan as discussed. Use relapse prevention skills Return to ER or call 911 if suicidal, homicidal or symptoms relapse. Stay away from stress, alcohol and drugs. See primary doctor regularly and get labs. Prescriptions/Medication Reconciliation: Gabapentin [Neurontin] 600 mg PO TID #90 tab Lisinopril [Zestril] 40 mg PO DAILY #30 tab Metoprolol Tartrate [Lopressor] 25 mg PO BID #60 tab NIFEdipine ER [Procardia XL] 30 mg PO DAILY #30 ter Pantoprazole [Protonix EC Tab] 40 mg PO DAILY #30 ect traZODone [Desyrel] 100 mg PO HS PRN #30 tab PRN Reason: Insomnia
[2018-11-02 10:57] VITALS: PULSE 72; RESP 18; TEMP 99
== END 2018-11-02 11:20 | disposition home or self-care (01) | DRG 744 ==
LOC: SUPCPDRO 19:31 → C.ER 19:31 → C.7D 22:06
PROC: HZ2ZZZZ Detoxification Services for Substance Abuse Treatment (ICD-10-PCS; principal; 2018-10-28)
PROC: GZ3ZZZZ Medication Management (ICD-10-PCS; 2018-10-28)
PROC: HZ59ZZZ Individual Psychotherapy for Substance Abuse Treatment, Supportive (ICD-10-PCS; 2018-10-28)
PROC: HZ46ZZZ Group Counseling for Substance Abuse Treatment, Psychoeducation (ICD-10-PCS; 2018-10-28)
DX: F10.230 Alcohol dependence with withdrawal, uncomplicated (principal); F11.23 Opioid dependence with withdrawal; F33.2 Major depressive disorder, recurrent severe without psychotic features; N17.9 Acute kidney failure, unspecified; R11.10 Vomiting, unspecified; I10 Essential (primary) hypertension; E66.9 Obesity, unspecified; M19.90 Unspecified osteoarthritis, unspecified site; Y90.6 Blood alcohol level of 120-199 mg/100 ml; Z86.711 Personal history of pulmonary embolism; Z86.718 Personal history of other venous thrombosis and embolism; Z79.02 Long term (current) use of antithrombotics/antiplatelets